=== PATIENT | male | born 1990 | race Caucasian/White ===

== ENCOUNTER 2018-02-18 12:44 | Inpatient (IN) | payer OTHER ==
[2018-02-18] MEDS ORDERED: NS 1,000 ML IV ONE ×2 (14:17→14:21)
[2018-02-18] MEDS ORDERED: KETOROLAC 30 MG/1 ML SDV IVP ONE (14:21)
--- NOTE | 2018-02-18 14:21 | EDPHY ---
H & P Time Seen by Provider: 02/18/18 14:10 HPI/ROS: CHIEF COMPLAINT: Fever, abdominal pain HISTORY OF PRESENT ILLNESS: Patient is a 19-year-old male with a history of migraines who presents emergency department multiple complaints. The patient states last Sunday he ate some mushrooms soup that may not have been good. That evening he developed abdominal cramps and"fever dreams."The next day he felt slightly better although he had intermittent fever. His abdominal cramping progressed over the next few days. He also describes intermittent fevers and chills. He has no sore throat. No headache. No chest pain or shortness of breath. Patient has had mild abdominal cramping. He feels it is slightly worse on the right lower quadrant. He has had no nausea or vomiting. No diarrhea. REVIEW OF SYSTEMS: 10 systems were reveiwed and are negative with the exception of the elements mentioned in the history of present illness. Past Medical/Surgical History: The includes migraine, asthma, pneumothorax Past surgical history: Negative Social history: The patient does not smoke Smoking Status: Former smoker Physical Exam: Vitals noted. 38.3, 132/88, 103 GENERAL: Well-appearing, in no acute distress, alert. HEENT: Eyes normal to inspection, normal pharynx, no signs of dehydration. NECK: Normal, supple. RESPIRATORY: Clear to auscultation bilaterally, no rales, rhonchi or wheezing. CVS: Regular tachycardia, no rubs, murmurs, or gallops. ABDOMEN: Soft, mild right lower quadrant tenderness to palpation with no rebound or guarding, nondistended, no organomegaly. BACK: Normal to inspection, no CVA tenderness. SKIN: Normal color, no rash, warm, dry. No pallor. EXTREMITIES: No pedal edema, no calf tenderness, no Homans sign or cords, no joint swelling. NEURO/PSYCH: Alert and oriented, normal mood and affect, normal motor sensory exam. Constitutional: Initial Vital Signs Temperature (C) 38.3 C 02/18/18 13:13 Heart Rate 103 H 02/18/18 13:13 Respiratory Rate 16 02/18/18 13:13 Blood Pressure 132/88 H 02/18/18 13:13 O2 Sat (%) 96 02/18/18 13:13 O2 Delivery Mode Room Air Allergies/Adverse Reactions: No Known Allergies Allergy (Unverified 02/18/18 13:18) Home Medications: Medication Instructions Recorded Albuterol 02/18/18 Medical Decision Making - Diagnostics Imaging Results: Imaging Impressions Abdomen Ultrasound 02/18/18 14:18 Impression: Complex mass measuring 5.4 cm in the right lower quadrant, with suggestion of a tubular structure anteriorly, suspicious for ruptured appendicitis. Findings and recommendations discussed with ALETHA Pearce MAGGI at 1509 hour, 02/18/2018. ED Course/Re-evaluation: In the emergency department I discussed possible etiologies with the patient. I answered all his questions. Patient had an IV placed. He is given normal saline 1 L IV for hydration. Laboratory studies and ultrasound were ordered. I discussed the plan with the patient Patient has elevated white count of 12.6. Chemistry panel is unremarkable. The patient's bilirubin is slightly elevated. Lactic acid is 1.3. Ultrasound: Please refer the dictated report. Patient has a 5.4 cm complex mass in the right lower quadrant. This could be a ruptured appendicitis. I discussed this with Dr. GUILLERMO Juares. He will come and evaluate the patient. He did not want further imaging at this time. Patient was given Invanz 1 g IV. Differential Diagnosis: My differential includes but is not limited to appendicitis, viral illness, influenza, small-bowel obstruction, perforation, cholecystitis, cholangitis, urinary tract infection, pyelonephritis - Data Points Laboratory Results: Laboratory Results 02/18/18 14:30 02/18/18 14:30 02/18/18 02/18/18 02/18/18 14:30 14:30 14:30 WBC RBC Hgb Hct MCV MCH MCHC RDW Plt Count MPV Neut % (Auto) Lymph % (Auto) Cherry % (Auto) Eos % (Auto) Baso % (Auto) Nucleat RBC Rel Count Absolute Neuts (auto) Absolute Lymphs (auto) Absolute Monos (auto) Absolute Eos (auto) Absolute Basos (auto) Absolute Nucleated RBC Immature Gran % Immature Gran # PT INR APTT VBG Lactic Acid 1.3 mmol/L mmol/L (0.7-2.1) Sodium 139 mEq/L mEq/L (135-145) Potassium 3.7 mEq/L mEq/L (3.3-5.0) Chloride 103 mEq/L mEq/L (97-110) Carbon Dioxide 27 mEq/l mEq/l (22-31) Anion Gap 9 mEq/L mEq/L (6-14) BUN 7 mg/dL mg/dL (7-23) Creatinine 0.7 mg/dL mg/dL (0.7-1.3) Estimated GFR > 60 Glucose 91 mg/dL mg/dL (70-100) Calcium 9.4 mg/dL mg/dL (8.5-10.4) Total Bilirubin 1.6 mg/dL H mg/dL (0.1-1.4) Conjugated Bilirubin 0.3 mg/dL mg/dL (0.0-0.5) Unconjugated Bilirubin 1.3 mg/dL H mg/dL (0.0-1.1) AST 20 IU/L IU/L (17-59) ALT 26 IU/L IU/L (21-72) Alkaline Phosphatase 71 IU/L IU/L (38-126) Total Protein 7.4 g/dL g/dL (6.3-8.2) Albumin 4.2 g/dL g/dL (3.5-5.0) Lipase 68 IU/L IU/L (23-300) Nasal Influenza A PCR Pending Nasal Influenza B PCR Pending 02/18/18 02/18/18 14:30 14:30 WBC 12.64 10^3/uL H 10^3/uL (3.80-9.50) RBC 4.82 10^6/uL 10^6/uL (4.40-6.38) Hgb 14.6 g/dL g/dL (13.7-17.5) Hct 42.2 % % (40.0-51.0) MCV 87.6 fL fL (81.5-99.8) MCH 30.3 pg pg (27.9-34.1) MCHC 34.6 g/dL g/dL (32.4-36.7) RDW 11.9 % % (11.5-15.2) Plt Count 233 10^3/uL 10^3/uL (150-400) MPV 10.5 fL fL (8.7-11.7) Neut % (Auto) 84.0 % H % (39.3-74.2) Lymph % (Auto) 8.0 % L % (15.0-45.0) Cherry % (Auto) 6.9 % % (4.5-13.0) Eos % (Auto) 0.5 % L % (0.6-7.6) Baso % (Auto) 0.2 % L % (0.3-1.7) Nucleat RBC Rel Count 0.0 % % (0.0-0.2) Absolute Neuts (auto) 10.62 10^3/uL H 10^3/uL (1.70-6.50) Absolute Lymphs (auto) 1.01 10^3/uL 10^3/uL (1.00-3.00) Absolute Monos (auto) 0.87 10^3/uL H 10^3/uL (0.30-0.80) Absolute Eos (auto) 0.06 10^3/uL 10^3/uL (0.03-0.40) Absolute Basos (auto) 0.03 10^3/uL 10^3/uL (0.02-0.10) Absolute Nucleated RBC 0.00 10^3/uL 10^3/uL (0-0.01) Immature Gran % 0.4 % % (0.0-1.1) Immature Gran # 0.05 10^3/uL 10^3/uL (0.00-0.10) PT 17.2 SEC H SEC (12.0-15.0) INR 1.39 H (0.83-1.16) APTT 43.7 SEC H SEC (23.0-38.0) VBG Lactic Acid Sodium Potassium Chloride Carbon Dioxide Anion Gap BUN Creatinine Estimated GFR Glucose Calcium Total Bilirubin Conjugated Bilirubin Unconjugated Bilirubin AST ALT Alkaline Phosphatase Total Protein Albumin Lipase Nasal Influenza A PCR Nasal Influenza B PCR Medications Given: Discontinued Medications Sodium Chloride (Ns) 1,000 mls @ 0 mls/hr IV ONCE ONE PRN Reason: Wide Open Stop: 02/18/18 14:18 Last Admin: 02/18/18 14:43 Dose: 1,000 mls Sodium Chloride (Ns) 1,000 mls @ 0 mls/hr IV EDNOW ONE; Wide Open PRN Reason: Protocol Stop: 02/18/18 14:22 Last Admin: 02/18/18 14:43 Dose: 1,000 mls Ketorolac Tromethamine (Toradol) 15 mg IVP EDNOW ONE Stop: 02/18/18 14:22 Last Admin: 02/18/18 14:43 Dose: 15 mg Departure - Departure Disposition: [facility] Acute Clinical Impression: Appendicitis Qualifiers: Appendicitis type: acute appendicitis Acute appendicitis type: with localized peritonitis Appendicitis gangrene presence: without gangrene Appendicitis perforation presence: unspecified whether perforation present Appendicitis abscess presence: unspecified whether abscess present Qualified Code(s): K35.30 - Acute appendicitis with localized peritonitis, without perforation or gangrene Condition: Good
[2018-02-18 14:48] LABS: PLATELET COUNT 233 10^3/uL (150-400)
[2018-02-18 14:57] LABS: INR 1.39 (0.83-1.16); PROTIME(PATIENT) 17.2 SEC (12.0-15.0)
[2018-02-18] MEDS ORDERED: ERTAPENEM 1 GM in NS 100 ML IV ONE (15:24)
[2018-02-18] MEDS ORDERED: LR 1,000 ML IV ONE (16:53)
[2018-02-18] MEDS ORDERED: BUPIVACAINE 0.5% 30 ML SDV ONE (17:07)
[2018-02-18] MEDS ORDERED: MIDAZOLAM 2 MG/2 ML VIAL ONE (17:32)
[2018-02-18] MEDS ORDERED: MIDAZOLAM 2 MG/2 ML VIAL IVP ONE (17:38)
[2018-02-18] MEDS ORDERED: fentaNYL 100 MCG/2 ML INJ ONE ×3 (17:40→19:37)
[2018-02-18] MEDS ORDERED: PROPOFOL 200 MG/20 ML VIAL ONE (17:40)
--- NOTE | 2018-02-18 17:40 | PDANEPAE ---
ANE History of Present Illness lap melly [place] Past Medical History - Cardiovascular History Hx Hypertension: No Hx Arrhythmias: No Hx Chest Pain: No Hx Coronary Artery / Peripheral Vascular Disease: No Hx CHF / Valvular Disease: No Hx Palpitations: No - Pulmonary History Hx COPD: No Hx Asthma/Reactive Airway Disease: No Hx Recent Upper Respiratory Infection: No Hx Oxygen in Use at Home: No Hx Sleep Apnea: No - Endocrine History Hx Diabetes: No ANE Review of Systems Review of systems is: negative Review of Systems: - Exercise capacity Exercise capacity: >=4 METS ANE Patient History - Allergies Allergies/Adverse Reactions: No Known Allergies Allergy (Verified 02/18/18 17:16) - Home Medications Home medications: home medication list seen and reviewed Home Medications: Albuterol Sulfate [Proair Hfa] 1 puffs IH DAILY PRN 02/18/18 [Last Taken ] - NPO status NPO Since - Liquids (Date): 02/18/18 NPO Since - Liquids (Time): 10:30 NPO Since - Solids (Date): 02/18/18 NPO Since - Solids (Time): 10:30 - Anes Hx Anes Hx: no prior problems - Smoking Hx Smoking Status: Former smoker ANE Labs/Vital Signs - Labs Result Diagrams: 02/18/18 14:30 02/18/18 14:30 - Vital Signs Blood Pressure: 139/71 Heart Rate: 90 Respiratory Rate: 15 O2 Sat (%): 95 Height: 182.88 cm Weight: 68.039 kg ANE Physical Exam - Airway Neck exam: FROM Mallampati Score: Class 1 Mouth exam: normal dental/mouth exam - Pulmonary Pulmonary: no respiratory distress - Cardiovascular Cardiovascular: regular rate and rhythym - ASA Status ASA Status: I, E ANE Anesthesia Plan Anesthesia Plan: general endotracheal anesthesia
[2018-02-18] MEDS ORDERED: ROCURONIUM 50 MG/5 ML VIAL ONE ×2 (17:44→18:22)
[2018-02-18] MEDS ORDERED: DEXAMETHASONE 4 MG/ML VIAL ONE (17:55)
[2018-02-18] MEDS ORDERED: KETOROLAC 30 MG/1 ML SDV ONE (17:59)
[2018-02-18] MEDS ORDERED: ONDANSETRON 4 MG/2 ML VIAL ONE (17:59)
[2018-02-18] MEDS ORDERED: SUGAMMADEX SODIUM 200 MG/2 ML VIAL IVP ONE (17:59)
--- NOTE | 2018-02-18 17:59 | POSTANESTH ---
Post Anesthetic Evaluation Cardiovascular Status: Normal, Stable Respiratory Status: Normal, Stable Level of Consciousness/Mental Status: Can Participate in Eval, Alert and Oriented Pain Control: Adequate, Prn Tx Ordered Nausea/Vomiting Control: Adequate, Prn Tx Ordered Complications Possibly Related to Anesthesia: None Noted
[2018-02-18] MEDS ORDERED: NALOXONE HCL 0.4 MG/ML INJ IVP PRN (18:19)
[2018-02-18] MEDS ORDERED: ONDANSETRON 4 MG/2 ML VIAL IVP PRN ×2 (18:19→19:18)
[2018-02-18] MEDS ORDERED: fentaNYL 100 MCG/2 ML INJ IVP PRN (18:19)
[2018-02-18] MEDS ORDERED: LR 500 ML IV PRN (18:19)
[2018-02-18] MEDS ORDERED: HYDROCODONE/APAP 5/325 TAB PO PRN (18:19)
[2018-02-18] MEDS ORDERED: ALBUTEROL 3 ML DEYVIAL IH PRN (18:19)
[2018-02-18] MEDS ORDERED: PROMETHAZINE HCL 25 MG/ML INJ IVP PRN (18:19)
[2018-02-18] MEDS ORDERED: ACETAMINOPHEN 500 MG TAB PO PRN (18:19)
[2018-02-18] MEDS ORDERED: oxyCODONE IR 5 MG TAB PO PRN (18:19)
[2018-02-18] MEDS ORDERED: HYDROmorphONE/DILAUDID 2 MG/ML INJ IVP PRN (18:19)
[2018-02-18] MEDS ORDERED: HEPARIN 1000 UNIT/1 ML MDV ONE (18:56)
--- NOTE | 2018-02-18 19:23 | POSTOPPROG ---
Post Op Note Date of Operation: 02/18/18 Surgeon: Santi Juares Motor Inspection Mechanic: Lidya Guaman Anesthesiologist: Heron Lopez Anesthesia: GET(General Endotracheal) Pre-op Diagnosis: acute appendicitis, likely perforated Post-op Diagnosis: acute perforated appendicitis with abscess Procedure: lap appy c drainage of abscess Findings: walled off abscess, inflamed perf appendix Inf/Abcess present in the surg proc area at time of surgery?: Yes Depth: Organ Space EBL: 200cc Complications: none Drains: Benji Dorsey Specimen(s): appendix for path and culture
[2018-02-18] MEDS ORDERED: ALBUTEROL 60 PUFFS/8 GM MDI IH PRN (21:00)
[2018-02-18] MEDS: NS 1,000 ML IV SCH (21:43)
[2018-02-18] MEDS: OXYCODONE/APAP 5/325 TAB PO PRN (21:45)
[2018-02-19] MEDS: OXYCODONE/APAP 5/325 TAB PO PRN ×5 (02:59→20:46)
[2018-02-19 04:58] LABS: PLATELET COUNT 187 10^3/uL (150-400)
[2018-02-19] MEDS: NS 1,000 ML IV SCH (07:46)
--- NOTE | 2018-02-19 09:16 | ASMTCMCOM ---
CM Note CM Note Notes: Chart reviewed for discharge planning purposes. 27 year old male s/p appendectomy. CM to follow for needs. Likely to discharge home independently when medically cleared for discharge. Plan: As above. Date Signed: 02/19/2018 09:15 AM Electronically Signed By:Cathie Parra RN
[2018-02-19] MEDS: HYDROmorphONE/DILAUDID 1 MG/ML INJ IVP PRN ×2 (10:29→20:10)
--- NOTE | 2018-02-19 12:01 | SOAPPROG ---
[facility] Progress Note Assessment/Plan: Assessment/Plan: 27 Y M s/p lap appy c drainage of abscess for perforated appendicitis. POD#1. Urinary retention. Straight cath'ed this am. Will continue to try to void spontaneously. This occurred after a previous procedure and resolved within a day he says. High CHEO drain output. H&H stable. Very hemodynamically stable. Doubt ongoing bleeding. 2 L irrigation used at surgery. Still, output is still quite sanguinous. Will observe. H&H in am. Pain controlled. Continue IV abx. Regular diet. Also seen by Dr. Juares. Dispo: continue hospital say for IV abx and continued observation for very bad perforated appendicitis c abscess. S: passed some gas. pain controlled. can't void. O: alert, nad mmm no wob rrr abd soft, inc cdi, appropriately tender, drain sanguinous 02/19/18 11:48 Objective: Vital Signs Temp Pulse Resp BP Pulse Ox 37.3 C 105 H 16 128/63 H 98 02/19/18 08:00 02/19/18 08:00 02/19/18 08:00 02/19/18 08:00 02/19/18 08:00 Microbiology 02/18/18 18:45 Gram Stain - Final Appendix - Eswab Laboratory Results 02/19/18 10:20 02/18/18 02/19/18 02/20/18 05:59 05:59 05:59 Intake Total 3400 Output Total 880 30 Balance 2520 -30 PT 17.2 SEC (12.0-15.0) H 02/18/18 14:30 INR 1.39 (0.83-1.16) H 02/18/18 14:30 ICD10 Worksheet Patient Problems: Problems Problem Status Onset Appendicitis Acute
[2018-02-19] MEDS: ERTAPENEM 1 GM in NS 100 ML IV SCH (16:10)
--- NOTE | 2018-02-19 16:54 | PDMN ---
Medical Necessity Medical necessity: [facility] [place] S180 appendectomy with abscess or peritonitis 3 days OP: Lap appy with drainage of abscess for perforated appendicitis with need for ongoing IV abx
[2018-02-19] MEDS ORDERED: KETOROLAC 15 MG/1 ML SDV IVP PRN (19:11)
[2018-02-20] MEDS: NS 1,000 ML IV SCH (04:35)
[2018-02-20] MEDS: OXYCODONE/APAP 5/325 TAB PO PRN ×4 (08:27→23:24)
--- NOTE | 2018-02-20 10:33 | SOAPPROG ---
SOAP Progress Note Assessment/Plan: Assessment: 27 y/o M s/p lap appy for acutely inflamed appendix and walled off abscess POD # 1 Urinary retention: resolved. Oozing from incision last night: resolved now. Likely due to bearing down during sanders removal. S: Up walking the halls during visit. Sanders d/c'ed and urinating ok. Tolerating a regular diet. Pain controlled. O: Alert Temp 38.1 today WBC today pending RRR No increased WOB Abdomen: soft, appropriately ttp, incisions cdi, CHEO drain in place. Plan: Continue inpt status for at least one more night. Will watch temp and WBC. 02/20/18 10:30 Objective: Vital Signs Temp Pulse Resp BP Pulse Ox 38.1 C 97 14 116/68 1 L 02/20/18 07:24 02/20/18 07:24 02/20/18 07:24 02/20/18 07:24 02/20/18 07:24 02/19/18 02/20/18 02/21/18 05:59 05:59 05:59 Output Total 2685 1120 Balance -2685 -1120 PT 17.2 SEC (12.0-15.0) H 02/18/18 14:30 INR 1.39 (0.83-1.16) H 02/18/18 14:30 ICD10 Worksheet Patient Problems: Problems Problem Status Onset Appendicitis Acute
[2018-02-20 10:41] LABS: PLATELET COUNT 259 10^3/uL (150-400)
[2018-02-20] MEDS: ERTAPENEM 1 GM in NS 100 ML IV SCH (16:22)
--- NOTE | 2018-02-20 18:10 | GOP ---
DATE OF OPERATION: SURGEON: Santi Juares MD PREOPERATIVE DIAGNOSIS: Appendicitis with abscess. POSTOPERATIVE DIAGNOSIS: Appendicitis with abscess. PROCEDURE PERFORMED: Laparoscopic appendectomy with drainage of appendiceal abscess. FINDINGS: The patient was found to have a 5 cm abscess cavity containing the appendix and a large am ount of purulent fluid. DESCRIPTION OF PROCEDURE: The patient was taken to the operating room where he received a satisfacto ry general endotracheal anesthesia. He was placed in supine position, prepped and draped in usual st erile fashion. A periumbilical incision was made. A Veress needle inserted. Pneumoperitoneum was established. A t rocar was introduced. Good visualization was obtained. Two other trocars were placed in the lower a bdomen. The cecum was mobilized. The appendix origin could be identified, but then proceeded into t his mass adherent to the anterior abdominal wall, which contained an abscess. This was dissected herve e. The abscess contents were just suctioned away and sent for culture. The wound was copiously irri gated. The mesoappendix was eventually identified and dissected away from the terminal ileum and the n divided with the Harmonic Scalpel until the base was skeletonized, and the appendix base was then d ivided with a ANAHI stapler. The remainder of the attachments of this appendix and abscess were freed up with the Harmonic scalpel. It was then placed in a specimen bag extracted through the upper midli ne port site. This required a rather significant enlargement of the port site to be able to deliver this large mass, but eventually that was accomplished. Hemostasis was obtained. The wound was irrigated. A 15 round CHEO drain was brought in through one of the lower trocar sites and secured to the skin with a silk suture and it was placed in the abscess c avity. The periumbilical incision was closed in layers using 0 Vicryl for the deep and anterior fasc ia, 3-0 Vicryl for the subcu, and 4-0 Monocryl subcuticular stitch for the skin. All layers were inf iltrated with 0.5% Marcaine. The other trocar sites were closed with 4-0 Monocryl subcuticular sutur es. He tolerated the procedure quite well. Blood loss was negligible. There were no complications. He was taken to the recovery room in good condition. /[id number]/MODL
--- NOTE | 2018-02-21 09:35 | ASMTCMCOM ---
CM Note CM Note Notes: Chart reviewed. for discharge planning purposes. 27 year old female s/p laparoscopic choleycystectomy with low grade temps. Up in halls independently. No needs identified at this time. CM available should needs arise. Plan: [facility] when medically stable for discharge. Date Signed: 02/21/2018 09:33 AM Electronically Signed By:Cathie Parra RN
[2018-02-21] MEDS: ACETAMINOPHEN 325 MG TAB PO PRN ×2 (10:37→15:48)
--- NOTE | 2018-02-21 10:56 | SOAPPROG ---
SOAP Progress Note Assessment/Plan: Assessment: COMFORTABLE/ ABD SOFT WITH BS/ TOLERATING PO WELL/ DRAINAGE NOT PURULENT EATING WELL/ SOME AFTERNOON TEMP ELEVATION Plan:CONTINUE ABX/ CT IF TEMPS PERSIST 02/21/18 10:54 Objective: Vital Signs Temp Pulse Resp BP Pulse Ox 38.3 C H 89 14 118/65 91 L 02/21/18 07:32 02/21/18 07:32 02/21/18 07:32 02/21/18 07:32 02/21/18 07:32 Laboratory Results 02/20/18 10:13 02/20/18 02/21/18 02/22/18 05:59 05:59 05:59 Intake Total 1348 Output Total 2685 1120 Balance -2685 228 PT 17.2 SEC (12.0-15.0) H 02/18/18 14:30 INR 1.39 (0.83-1.16) H 02/18/18 14:30 ICD10 Worksheet Patient Problems: Problems Problem Status Onset Appendicitis Acute
[2018-02-21 11:23] LABS: PLATELET COUNT 212 10^3/uL (150-400)
[2018-02-21] MEDS: ERTAPENEM 1 GM in NS 100 ML IV SCH (15:45)
[2018-02-21] MEDS: OXYCODONE/APAP 5/325 TAB PO PRN (18:22)
[2018-02-21] MEDS: NS 1,000 ML IV SCH (18:22)
[2018-02-22] MEDS: OXYCODONE/APAP 5/325 TAB PO PRN (02:03)
[2018-02-22 08:03] VITALS: BP 113/66
[2018-02-22] MEDS: ACETAMINOPHEN 325 MG TAB PO PRN (08:06)
[2018-02-22] MEDS ORDERED: ACETAMINOPHEN/ASA/CAFFEINE 1 EACH TAB PO PRN (08:31)
[2018-02-22 09:34] LABS: PLATELET COUNT 257 10^3/uL (150-400)
--- NOTE | 2018-02-22 11:00 | ASMTLACE ---
PATRICE Length of stay for Answers: 3 days current admission Acuity / Level of Answers: Yes Care: Did the patient have an inpatient admission? # of Emergency department Answers: 1-2 visits in the last 6 months Score: 7 Date Signed: 02/22/2018 10:59 AM Electronically Signed By:Rhona Grace RN
== END 2018-02-22 12:39 | disposition home or self-care (01) | DRG 340 ==
LOC: F1N 21:22 → OBSVTOIN 02-19 16:54
PROVIDERS: ADMIT Surgery; ATTEND Surgery
PROC: 0DTJ4ZZ Resection of Appendix, Percutaneous Endoscopic Approach (ICD-10-PCS; principal; 2018-02-18 17:15)
DX: K35.33 Acute appendicitis with perforation, localized peritonitis, and gangrene, with abscess (principal); G43.909 Migraine, unspecified, not intractable, without status migrainosus; J45.909 Unspecified asthma, uncomplicated; Z87.891 Personal history of nicotine dependence
CPT/HCPCS: 96365; G0378; J1100; J1170; J1335; J1885; J2250; J2405; J2704; J3010

== ENCOUNTER → 2018-04-14 | Outpatient (CLI) | payer OTHER | LOC: BMCIMAGING 10:36 | PROVIDERS: ATTEND Family Medicine | DX: S89.91XA Unspecified injury of right lower leg, initial encounter (principal) ==